=== PATIENT | female | born 1980 | race Two or more races ===

== ENCOUNTER 2016-10-27 11:28 | Outpatient (CLI) | payer MEDICAID ==
[~2016-10-27] VITALS: Ht 157.5 cm; Wt 64.8 kg
[2016-10-27 11:50] VITALS: BP 109/63; PULSE 78; RESP 18
[2016-10-27] MEDS ORDERED: PRENAT PO (11:50)
[2016-10-27 11:51] VITALS: Ht 157.5 cm; Wt 64.8 kg
[2016-10-27 13:36] LABS: BASOPHILS % 0.1 % (0.0-2.0); EOSINOPHILS # 0.1 10^3/ul (0.0-0.5); EOSINOPHILS % 0.6 % (0.0-7.0); HEMATOCRIT 34.8 % (37.0-47.0); HEMOGLOBIN 11.6 g/dl (12.0-16.0); LYMPHOCYTES # 1.5 10^3/ul (0.8-2.9); LYMPHOCYTES % 15.9 % (15.0-51.0); MEAN CORPUSCULAR HEMOGLOBIN 30.1 pg (29.0-33.0); MEAN CORPUSCULAR HGB CONC 33.3 g/dl (32.0-37.0); MEAN CORPUSCULAR VOLUME 90.2 fl (82.0-101.0); MEAN PLATELET VOLUME 12.7 fl (7.4-10.4); MONOCYTE # 0.7 10^3/ul (0.3-0.9); MONOCYTES % 7.2 % (0.0-11.0); NEUTROPHILS % 75.5 % (39.0-77.0); PLATELET COUNT 146 10^3/UL (140-415); RED BLOOD COUNT 3.86 10^6/ul (4.20-5.40); WHITE BLOOD COUNT 9.4 10^3/ul (4.8-10.8)
--- NOTE | 2016-10-27 13:36 | RADRPT ---
PROCEDURE: Biophysical profile CLINICAL INDICATION: with contractions. distress. TECHNIQUE: Color and irizarry-scale ultrasound images of an intrauterine gestation were obtained. COMPARISON: None FINDINGS: A single live intrauterine gestation is identified in cephalic position with an estimated hear t rate of 136 beats per minute. The placenta is located posteriorly and has a grade of 1. The cerv ix is obscured by head shadows. No evidence of abruption identified. KWESI is 11.3 cm. movement 2/2. tone 2/2. breathing movement 2/2. Qualitative AFV 2/2 Total biophysical profile 09/22 IMPRESSION: 09/22 biophysical profile. RPTAT: AA .Amado Keys MD, Date Time Electronically viewed and signed by .Amado Keys MD, MD on 10/27/2016 13:36 .P/
[2016-10-27 13:47] LABS: ADD UMIC YES; UR ASCORBIC ACID NEGATIVE (NEGATIVE); UR BACTERIA FEW /HPF (NONE SEEN); UR BILIRUBIN (Dip) NEGATIVE (NEGATIVE); UR BLOOD (Dip) NEGATIVE (NEGATIVE); UR CLARITY CLEAR (CLEAR); UR COLOR YELLOW (YELLOW); UR GLUCOSE (Dip) NEGATIVE (NEGATIVE); UR KETONES (Dip) NEGATIVE (NEGATIVE); UR LEUKOCYTE ESTERASE (Dip) 1+ Leu/ul (NEGATIVE); UR NITRITE (Dip) NEGATIVE (NEGATIVE); UR RBC 1 /HPF (0-5); UR SPECIFIC GRAVITY (Dip) 1.011 (1.003-1.030); UR TOTAL PROTEIN (Dip) NEGATIVE (NEGATIVE); UR UROBILINOGEN (Dip) NEGATIVE (NEGATIVE)
[2016-10-27] MEDS ORDERED: LACTATED RINGER'S 1,000 ML IV ONE (14:30)
--- NOTE | 2016-10-27 15:02 | RADRPT ---
PROCEDURE: Limited obstetric ultrasound CLINICAL INDICATION: Pain TECHNIQUE: Multiple transverse and longitudinal grayscale images of the pelvis were obtained gómez sabdominally and transvaginally.. COMPARISON: Same day FINDINGS: The cervix is closed with a length of 4.4 cm. There is a single viable intrauterine gestation. Cardiac activity is present with 125 beats per min [place]. There is a vertex presentation. The placenta is posterior fundal. There is no evidence for an abruption or placenta previa. RPTAT: AA IMPRESSION: Cervix length measures 4.4 cm. .Jed Boothe MD, Date Time Electronically viewed and signed by .Jed Boothe MD, on 10/27/2016 15:01 .S/
[2016-10-27] MEDS ORDERED: NIFEdipine 10 MG CAP PO ONE (16:00)
--- NOTE | 2016-10-27 18:30 | TRIAGE ---
OB Triage Datetime Report Generated by CPN: 10/27/2016 18:30 Datetime: 10/27/2016 18:24 Vaginal Exam Dilatation (cms): 0.0 Exam By: KHEMANI Datetime: 10/27/2016 18:00 Stage of : OB Triage Maternal Assessment Level of Consciousness: Fully Conscious Labor Evaluation Frequency: 1-5 Monitor Mode: External Duration (sec)2399: 30-90 Quality: Mild Resting Tone [place]: Relaxed Heart Rate FHR Baseline Rate: 140 Monitor Mode: External US Variability: Moderate 6-25 bpm Accelerations: 15X15 Decelerations: None Pain Assessment Pain Scale: 0 Pain Goal: 3 Membrane Status: Intact Vaginal Bleeding: None Datetime: 10/27/2016 17:32 Monitor Mode: External US Datetime: 10/27/2016 17:00 Stage of : OB Triage Maternal Assessment Level of Consciousness: Fully Conscious Labor Evaluation Frequency: 2-9 Monitor Mode: External Duration (sec)2399: 80-90 Quality: Mild Resting Tone [place]: Relaxed Heart Rate FHR Baseline Rate: 140 Monitor Mode: External US Variability: Moderate 6-25 bpm Accelerations: 15X15 Decelerations: None Pain Assessment Pain Scale: 0 Pain Goal: 3 Membrane Status: Intact Vaginal Bleeding: None Datetime: 10/27/2016 16:00 Stage of : OB Triage Maternal Assessment Level of Consciousness: Fully Conscious Labor Evaluation Frequency: 2-3 Monitor Mode: External Duration (sec)2399: 80-90 Quality: Mild Resting Tone [place]: Relaxed Heart Rate FHR Baseline Rate: 140 Monitor Mode: External US Variability: Moderate 6-25 bpm Accelerations: 15X15 Decelerations: None Pain Assessment Pain Scale: 0 Pain Goal: 3 Membrane Status: Intact Vaginal Bleeding: None Datetime: 10/27/2016 14:59 Stage of : OB Triage Maternal Assessment Level of Consciousness: Fully Conscious Labor Evaluation Frequency: 2-4 Monitor Mode: External Duration (sec)2399: 70-100 Quality: Mild Resting Tone [place]: Relaxed Heart Rate FHR Baseline Rate: 135 Monitor Mode: External US Variability: Moderate 6-25 bpm Accelerations: 15X15 Decelerations: None Pain Assessment Pain Scale: 0 Pain Goal: 3 Membrane Status: Intact Vaginal Bleeding: None Datetime: 10/27/2016 14:06 Vaginal Exam Dilatation (cms): 0.0 Exam By: MD DELSHAD Datetime: 10/27/2016 14:00 Stage of : OB Triage Maternal Assessment Level of Consciousness: Fully Conscious Labor Evaluation Frequency: 2-20 Monitor Mode: External Duration (sec)2399: 50-110 Quality: Mild Resting Tone [place]: Relaxed Heart Rate FHR Baseline Rate: 140 Monitor Mode: External US Variability: Moderate 6-25 bpm Accelerations: 15X15 Decelerations: None Pain Assessment Pain Scale: 0 Pain Goal: 3 Membrane Status: Intact Vaginal Bleeding: None Datetime: 10/27/2016 13:00 Stage of : OB Triage Maternal Assessment Level of Consciousness: Fully Conscious Labor Evaluation Frequency: 2uc/hr Monitor Mode: External Duration (sec)2399: 50-110 Quality: Mild Resting Tone [place]: Relaxed Heart Rate FHR Baseline Rate: 140 Monitor Mode: External US Variability: Moderate 6-25 bpm Accelerations: 15X15 Decelerations: None Category: Category I Pain Assessment Pain Scale: 0 Pain Goal: 3 Membrane Status: Intact Vaginal Bleeding: None Datetime: 10/27/2016 12:54 Pool: Negative Nitrazine: Negative Datetime: 10/27/2016 12:22 EGA: 31.3 Datetime: 10/27/2016 11:48 Assessment Type: Triage Maternal Assessment Level of Consciousness: Fully Conscious DTR's/Clonus: DTRs 2+; No Clonus Headache: Denies Blurred Vision: No Respiratory Effort: Unlabored; Regular Rhythm; Equal Expansion Breath Sounds, Left: Clear and Equal Breath Sounds, Right: Clear and Equal Nausea/Vomiting: Denies RUQ Epigastric Pain: Denies Lower Extremities Edema: None Degree: None Upper Extremities Edema: None Degree: None Facial Edema: None Fall Risk Assessment History of Falling: (0) No Secondary Diagnosis: (0) No Ambulatory Aid: (0) Bedrest/Nurse Assist IV Therapy: (0) No Gait: (0) Normal/Bedrest/Immobile Mental Status: (0) Oriented to Own Ability Fall Score: 0 Fall Risk Score Definition: No Risk: No action required Datetime: 10/27/2016 11:47 Time of Arrival: 10/27/2016 11:22 EGA: 31.3 Arrived By: Ambulatory Arrived From: Home Chief Complaint: PT HERE C/O POSSIBLE SROM SINCE LAST WEEK AND UC'S Movement: Present Contractions: Irregular Time Contractions Began: 10/27/2016 08:00 Rupture of Membranes: Unsure Vaginal Bleeding: None Vaginal Discharge: Denies Recent Sexual Intercouse: Denies Abdominal Trauma: Not Applicable Patient Complaints: Contractions; Cramping Time Provider Notified: 10/27/2016 12:45 Provider Notified: ALIDA Initial Plan: EFM/STER. SPEC./ROM PLUS/BPP/UA/CBC/CVL/IV HYDRATION/PROCARDIA PO Datetime: 10/27/2016 11:40 Monitor Mode: External Monitor Mode: External US
--- NOTE | 2016-10-27 18:34 | PN ---
Triage Information Date/Time Reason for visit: SROM Weeks of Gestation 31 weeks /Para Diabetes: none Hypertention: none Objective Vital Signs Date Time Temp Pulse Resp B/P Pulse Ox O2 Delivery O2 Flow Rate FiO2 10/27/16 11:50 98.9 78 18 109/63 95 Room Air Heart Rate: 130's Heart Rate Comments Category I Contractions: 6-10 Minutes Apart Exam Cervix closed. No cervical change during observation period. Results/Medications Result Diagram: 10/27/16 1305 Results 24 hrs Laboratory Tests Test 10/27/16 11:30 10/27/16 12:55 10/27/16 13:05 Urine Color YELLOW Urine Clarity CLEAR Urine pH 8.0 Urine Specific [place] 1.011 Urine Ketones NEGATIVE Urine Nitrite NEGATIVE Urine Bilirubin NEGATIVE Urine Urobilinogen NEGATIVE Urine Leukocyte Esterase 1+ H Urine Microscopic RBC 1 Urine Microscopic WBC 1 Urine Bacteria FEW A Urine Hemoglobin NEGATIVE Urine Glucose NEGATIVE Urine Total Protein NEGATIVE Membranes Rupture NEGATIVE White Blood Count 9.4 Red Blood Count 3.86 L Hemoglobin 11.6 L Hematocrit 34.8 L Mean Corpuscular Volume 90.2 Mean Corpuscular Hemoglobin 30.1 Mean Corpuscular Hemoglobin Concent 33.3 Red Cell Distribution Width 14.0 Platelet Count 146 Mean Platelet Volume 12.7 H Neutrophils % 75.5 Lymphocytes % 15.9 Monocytes % 7.2 Eosinophils % 0.6 Basophils % 0.1 Nucleated Red Blood Cells % 0.0 Neutrophils # (Manual) 7.1 Lymphocytes # 1.5 Monocytes # 0.7 Eosinophils # 0.1 Basophils # 0.0 Nucleated Red Blood Cells # 0.0 Imaging Results Cervical length and KWESI normal. Disposition: Discharge Assessment/Plan Sterile speculum exam no pooling ROM test negative No sign of SROM or labor. D/C home. EVERT RIWIN MD Oct 27, 2016 18:34
== END 2016-10-27 18:40 | disposition home or self-care (01) ==
LOC: OBT 11:28 → L-D 11:28 → OBT 18:40
PROVIDERS: ATTEND Obstetrics & Gynecology
DX: O42.913 Preterm premature rupture of membranes, unspecified as to length of time between rupture and onset of labor, third trimester (principal); Z3A.31 31 weeks gestation of pregnancy
CPT/HCPCS: 36415; 76817; 76818; 81001; 84112; 85025; 96360; 96361; J7120; Z7500; Z7610; G0463

== ENCOUNTER 2016-12-15 04:38 | Inpatient (IN) | payer MEDICAID ==
[~2016-12-15] VITALS: Ht 160 cm; Wt 68.8 kg
[~2016-12-15 04:38] MED LIST: PRENAT PO
[2016-12-15 05:10] VITALS: BP 116/76; PULSE 73; RESP 18; Ht 160 cm; Wt 68.8 kg
[2016-12-15] MEDS ORDERED: LACTATED RINGER'S 1,000 ML IV SCH (05:46)
[2016-12-15] MEDS ORDERED: LACTATED RINGER'S 1,000 ML IV PRN (05:50)
--- NOTE | 2016-12-15 05:50 | RADRPT ---
PROCEDURE: Biophysical profile. CLINICAL INDICATION: Pelvic pain. TECHNIQUE: Multiple sonographic images of the pelvis were obtained with transabdominal technique. COMPARISON: 10/27/2016. FINDINGS: There is a single living intrauterine gestation with the fetus in a vertex position. The placenta i s posterior in location, grade II. heart tones of 161 beats per minute are identified. There is low normal amniotic fluid volume with an KWESI of 8.9 cm. breathing movements = 2 Gross body movements = 2 tone = 2 Qualitative AFV = 2 IMPRESSION: Biophysical profile 8 out of 8. .Jeferson Carreno MD, Date Time Electronically viewed and signed by .Jeferson Carreno MD, on 12/15/2016 05:50 .T/
[2016-12-15] MEDS ORDERED: HYDROCODONE/APAP (5/325) TAB PO PRN ×2 (06:00→08:00)
[2016-12-15] MEDS ORDERED: OXYTOCIN 30 UNITS/LR 500 ML IV PRN ×2 (06:00→08:00)
[2016-12-15] MEDS ORDERED: MISOPROSTOL 200 MCG TAB PR PRN ×2 (06:00→08:00)
[2016-12-15] MEDS ORDERED: BUTORPHANOL 2 MG INJ IV PRN ×2 (06:00)
[2016-12-15] MEDS ORDERED: IBUPROFEN 600 MG TAB PO PRN (06:00)
[2016-12-15] MEDS ORDERED: LIDOCAINE 1% (MPF) 30 ML INJ INJ PRN (06:00)
[2016-12-15] MEDS ORDERED: AMPICILLIN 2 GM/NS (PMX) 100 ML IV ONE (06:00)
[2016-12-15] MEDS ORDERED: OXYTOCIN 30 UNITS/LR 500 ML IV SCH ×2 (06:00)
[2016-12-15] MEDS ORDERED: CARBOPROST 250 MCG INJ IM PRN ×2 (06:00→08:00)
[2016-12-15] MEDS ORDERED: METHYLERGONOVINE 0.2 MG INJ IM PRN ×2 (06:00→08:00)
--- NOTE | 2016-12-15 06:41 | TRIAGE ---
OB Triage Datetime Report Generated by CPN: 12/15/2016 06:41 Datetime: 12/15/2016 06:32 Stage of : Labor Vaginal Exam Dilatation (cms): 4.5 Effacement (%): 70 Station: -2 Exam By: MG Datetime: 12/15/2016 06:00 Labor Evaluation Frequency: 2-4 Monitor Mode: External Duration (sec)2399: 40-90 Quality: Mild Pattern: Normal: <= 5 Contractions in 10 Minutes Resting Tone [place]: Relaxed Heart Rate FHR Baseline Rate: 135 Monitor Mode: External US FHR Baseline Changes: No Baseline Change Variability: Moderate 6-25 bpm Accelerations: 15X15 Decelerations: None Category: Category I Datetime: 12/15/2016 04:57 Stage of : OB Triage Time of Arrival: 12/15/2016 04:30 EGA: 38.3 Arrived By: Wheelchair Arrived From: Home Time Provider Notified: 12/15/2016 05:07 Provider Notified: DR KESSLER Initial Plan: CALL KO HENLEY Maternal Assessment Level of Consciousness: Fully Conscious DTR's/Clonus: DTRs 2+; No Clonus Headache: Denies Blurred Vision: No Respiratory Effort: Unlabored; Regular Rhythm; Equal Expansion Breath Sounds, Left: Clear and Equal Breath Sounds, Right: Clear and Equal Nausea/Vomiting: Denies RUQ Epigastric Pain: Denies Lower Extremities Edema: None Degree: None Upper Extremities Edema: None Degree: None Facial Edema: None Temperature Route: Axillary Fall Risk Assessment History of Falling: (0) No Secondary Diagnosis: (0) No Ambulatory Aid: (0) Bedrest/Nurse Assist IV Therapy: (0) No Gait: (0) Normal/Bedrest/Immobile Mental Status: (0) Oriented to Own Ability Fall Score: 0 Fall Risk Score Definition: No Risk: No action required Monitor Mode: External Monitor Mode: External US Pain Assessment Pain Scale: 5 Pain Presence: Intermittent Pain Type: Contraction Pain Location: Abdomen; Back Datetime: 12/15/2016 04:48 Vaginal Exam Dilatation (cms): 2.0 Effacement (%): 40 Station: -3 Exam By: Shruthi LOONEY RN Vaginal Bleeding: None Cervix, Consistency: Firm Cervix, Position: Posterior Presentation 'A': Cephalic Datetime: 10/27/2016 12:22 Time of Arrival: 12/15/2016 04:30 EGA: 38.3 Arrived By: Wheelchair Arrived From: Home Chief Complaint: CONTRACTIONS @ 2200 / SROM @0330 Movement: Present Time Contractions Began: 12/14/2016 22:00 Rupture of Membranes: Unsure Initial Plan: CALL MD, EFM Datetime: 10/27/2016 11:48 Fall Score: 0 Fall Risk Score Definition: No Risk: No action required Datetime: 10/27/2016 11:47 EGA: 31.3
--- NOTE | 2016-12-15 07:36 | LDN ---
Date/Time of Note Date/Time of Note DATE: 12/15/16 TIME: 07:34 Delivery Summary of a viable baby boy weighing 2845 grams or 6# 4 oz, 18" long, and with Apgars of 9/9. Weeks of Gestation 38w 3d Placenta Delivered: Spontaneously Meconium: none Episiotomy: No Perineal laceration: 0 Anesthesia type: None Estimated blood loss: 150 Sponge & Needle done & correct: Yes All needle counts correct: Yes Any foreign bodies felt in the: No (vagina) Problems: Infant Delivery Information Sex Infant Sex: male Apgars 1 Minute: 9 5 Minute: 9 Suctioning Nose & mouth suctioned at stan: Yes Delee suction performed: No Umbilical Cord Umbilical cord with: 3 Vessels Cord presentations: nuchal cord Nuchal cord present X: 1 Cord Blood was obtained: Yes Mother & Baby Disposition Disposition Mom & Baby to Maternity; Good: Yes Baby to NICU: No KAMARI KESSLER MD Dec 15, 2016 07:36
--- NOTE | 2016-12-15 07:41 | HP ---
Date/Time of Note Date/Time of Note DATE: 12/15/16 TIME: 07:36 OB - History Hx of Present Free Text/Dictation 36 y.o. with an IUP at 38w 3d came in with ruptured membranes and in active labor. Chief Complaint: Labor Estimated Due Date: Dec 26, 2016 : 4 Para: 3 Care: Good Care Ultrasounds: Normal mid trimester US Obstetrical Complications: None Medical Complications: None Past Family/Social History * Past Medical, Surgical, Family and Obstetric Histories reviewed from chart. Blood Type: O+ Rubella: immune RPR/VDRL: Negative GBS Status: Unknown HBsAG: Negative OB Admission Exam Vital Signs Vital Signs Vital Signs Date Time Temp Pulse Resp B/P Pulse Ox O2 Delivery O2 Flow Rate FiO2 12/15/16 05:10 98.3 73 18 116/76 Room Air Physical Exam HEENT: WNL Heart: Rhythm Normal Lungs: Clear Abdomen: WNL Extremities: Normal Reflexes: Normal Cervical Dilatation: 4cm Effacement: 50% Station: -2 Membranes: Ruptured Amniotic Fluid: Clear Heart Rate: 140's Accelerations: Accelerations Present Decelerations: No Decelerations Varibility: Moderate Contractions on Admission: < 5 Minutes Apart Last 72 hours Lab Results CBC & BMP 12/15/16 06:12 OB Assessment/Plan Reason for admission: active labor Plan: Expectant Management Other plan: Antibiotic prophylaxis KAMARI KESSLER MD Dec 15, 2016 07:41
[2016-12-15] MEDS ORDERED: LANOLIN 7 GM TUBE TOP PRN (08:00)
[2016-12-15] MEDS: OXYTOCIN 30 UNITS/LR 500 ML IV SCH ×2 (08:05→11:41)
[2016-12-15] MEDS ORDERED: IBUPROFEN 600 MG TAB PO ONE (09:00)
[2016-12-15 09:20] VITALS: BP 124/78; PULSE 64; RESP 18
[2016-12-15] MEDS: LACTATED RINGER'S 1,000 ML IV* SCH ×2 (09:20→15:41)
[2016-12-15] MEDS ORDERED: AMPICILLIN 1 GM/NS (PMX) 50 ML IV SCH (10:00)
[2016-12-15] MEDS ORDERED: INFLUENZA VIRUS VACCINE 0.5 ML SYG IM* ONE (12:00)
[2016-12-15] MEDS: IBUPROFEN 600 MG TAB PO SCH ×2 (12:03→17:27)
[2016-12-15 12:30] VITALS: BP 122/76; PULSE 66; RESP 18
[2016-12-15 16:25] VITALS: BP 126/74; PULSE 66; RESP 18
[2016-12-15 20:00] VITALS: BP 101/58; PULSE 76; RESP 18
[2016-12-16] MEDS: IBUPROFEN 600 MG TAB PO SCH ×5 (00:18→23:57)
[2016-12-16 04:01] VITALS: BP 103/65; PULSE 66; RESP 18
[2016-12-16 07:30] VITALS: BP 112/65; PULSE 68; RESP 16
[2016-12-16] MEDS ORDERED: SENNA/DOCUSATE NA (8.6MG/50MG) TAB PO SCH ×2 (08:05→21:00)
[2016-12-16] MEDS ORDERED: INFLUENZA VIRUS VACCINE 0.5 ML SYG IM* ONE (10:00)
--- NOTE | 2016-12-16 13:07 | QN ---
Documentation Comment day 1 Afebrile Vital signs are stable Abdomen soft, uterus firm, lochia normal, extremity normal, Plan of a.m. discharge discussed with the patient MARTY PARDO MD Dec 16, 2016 13:07
[2016-12-16 16:00] VITALS: BP 106/62; PULSE 81; RESP 16
[2016-12-16 20:30] VITALS: BP 111/70; PULSE 76; RESP 19
[2016-12-16] MEDS: SENNA/DOCUSATE NA (8.6MG/50MG) TAB PO SCH (21:00)
[2016-12-17 04:00] VITALS: BP 105/68; PULSE 62; RESP 20
[2016-12-17] MEDS: IBUPROFEN 600 MG TAB PO SCH ×2 (05:41→12:03)
[2016-12-17 08:00] VITALS: BP 102/71; PULSE 18; RESP 18
[2016-12-17] MEDS ORDERED: DIPHTH/TET/ACEL PERTUSS (ADULT) 0.5 ML VIAL IM* ONE (09:00)
[2016-12-17] MEDS: SENNA/DOCUSATE NA (8.6MG/50MG) TAB PO SCH (09:34)
--- NOTE | 2016-12-17 10:24 | PD.PPDC ---
PHOTOENGRAVER Discharge Instruction Condition Patient Condition: Good Diet Diet: Resume Regular Diet Activity/Restrictions Activity: Normal Activity May Shower Restrictions: No Exercising No Lifting No Driving No Sexual Activity Nothing in the Vagina No [place] No Tampons, douche Follow-up Follow-up with Physician: 2, Week/Weeks Provider Information: instructions given recommended to make appointment to be seen at the clinic in 2 weeks Return to clinic for INTERSTATE PLANNER Instructions: Fever greater than 101 Chills Worsening abdominal pain Excessive Vaginal Bleeding More than 2 pads per hour Unable to tolerate diet OB Instructions: Breast Tenderness Depression Blurried Vision Headache Surgical Instructions: Incisional Drainage Incisional Redness MARTY PARDO MD Dec 17, 2016 10:24
--- NOTE | 2016-12-17 10:24 | PD.PPDC ---
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
--- NOTE | 2016-12-17 10:24 | PD.PPDC ---
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
--- NOTE | 2016-12-17 10:26 | DS ---
Date/Time of Note Date/Time of Note DATE: 12/17/16 TIME: 10:25 Discharge Summary Admission/Discharge Info Admit Date/Time Dec 15, 2016 at 05:51 Discharge Date/Time December 17, 2016 at 11 AM Discharge Diagnosis Post normal vaginal delivery day 2 Patient Condition: Good Procedures Normal vaginal delivery Hx of Present Illness Term Hospital Course Satisfactory uneventful Home Meds Reported Medications Multivit/Min/Fol Ac/Iron/Pren* ( S*) 1 Tab Tab, 1 TAB PO DAILY, TAB 10/27/16 Follow-up Plan instruction given recommended patient to make appointment to be seen at the clinic in 2 weeks Primary Care Provider Not On Staff Doctor Time spent on discharge: < 30 minutes Pending Labs Laboratory Tests Test 12/16/16 11:10 White Blood Count 8.610^3/ul (4.8-10.8) Red Blood Count 4.2810^6/ul (4.20-5.40) Hemoglobin 12.4g/dl (12.0-16.0) Hematocrit 37.9% (37.0-47.0) Mean Corpuscular Volume 88.6fl (82.0-101.0) Mean Corpuscular Hemoglobin 29.0pg (29.0-33.0) Mean Corpuscular Hemoglobin Concent 32.7g/dl (32.0-37.0) Red Cell Distribution Width 14.1% (11.5-14.5) Platelet Count 61005^3/UL (140-415) Mean Platelet Volume 13.2fl (7.4-10.4) Neutrophils % 68.5% (39.0-77.0) Lymphocytes % 22.3% (15.0-51.0) Monocytes % 7.5% (0.0-11.0) Eosinophils % 0.8% (0.0-7.0) Basophils % 0.4% (0.0-2.0) Nucleated Red Blood Cells % 0.0/100WBC (0.0-0.0) Neutrophils # 5.910^3/ul (1.6-7.5) Lymphocytes # 1.910^3/ul (0.8-2.9) Monocytes # 0.610^3/ul (0.3-0.9) Eosinophils # 0.110^3/ul (0.0-0.5) Basophils # 0.010^3/ul (0.0-0.1) Nucleated Red Blood Cells # 0.010^3/ul (0.0-0.0) MARTY PARDO MD Dec 17, 2016 10:26
== END 2016-12-17 16:30 | disposition home or self-care (01) | DRG 775 ==
LOC: OBT 04:38 → L-D 04:38 → OBT 05:51 → PP1 09:25
PROVIDERS: ADMIT Obstetrics & Gynecology; ATTEND Obstetrics & Gynecology
PROC: 10E0XZZ Delivery of Products of Conception, External Approach (ICD-10-PCS; principal; 2016-12-15)
DX: O80 Encounter for full-term uncomplicated delivery (principal); Z37.0 Single live birth; Z3A.38 38 weeks gestation of pregnancy
CPT/HCPCS: 36415; 76818; 80053; 81001; 84112; 85025; 85610; 85730; 86592; 86900; 86901; 87086; 90686; 90715; G0463; J0290; J2590; J7120

== ENCOUNTER 2018-02-03 15:43 | Emergency (ER) | END 2018-02-03 19:33 | disposition home or self-care (01) ==

== ENCOUNTER 2018-07-21 17:45 | Emergency (ER) | payer MEDICAID ==
[~2018-07-21] VITALS: Wt 65.0 kg
--- NOTE | 2018-07-21 19:55 | ERD ---
ER Documentation Chief Complaint Chief Complaint DYSURIA SENT BY PMD FOR FREQUENT UTI'S, 16 WEEKS HPI 38-year-old G5, P4 female in her 16th week of presents with complaint of dysuria. States that she says is a UTI 2 weeks ago and placed on a 7-day course of antibiotics which she completed a week ago. Since then his dysuria has returned. Primary care provider referred her here for urine culture. She is unsure which antibiotic she was taking. Denies any flank pain, fevers, hematuria, vomiting, back pain. ROS All systems reviewed and are negative except as per history of present illness. Medications Home Meds Active Scripts Cephalexin* (Keflex*) 500 Mg Capsule, 500 MG PO BID for 7 Days, CAP Prov:TORRESAYLIN 07/21/18 Reported Medications Multivit/Min/Fol Ac/Iron/Pren* ( S*) 1 Tab Tab, 1 TAB PO DAILY, TAB 10/27/16 Allergies Allergies: Coded Allergies: No Known Allergy (Verified , 02/03/18) PMhx/Soc Medical and Surgical Hx: pt denies Medical Hx, pt denies Surgical Hx Hx Alcohol Use: No Hx Substance Use: No Hx Tobacco Use: No Smoking Status: Never smoker FmHx Family History: No diabetes, No coronary disease, No other Physical Exam Vitals Vital Signs Date Temp Pulse Resp B/P (MAP) Pulse Ox O2 O2 Flow FiO2 Time Delivery Rate 07/21/18 98.1 67 18 139/72 98 18:18 (94) Physical Exam Const: No acute distress Head: Atraumatic Eyes: Normal Conjunctiva ENT: Normal External Ears, Nose and Mouth. Neck: Full range of motion. No meningismus. Resp: Clear to auscultation bilaterally Cardio: Regular rate and rhythm, no murmurs Abd: Soft, non tender, non distended. Normal bowel sounds Skin: No petechiae or rashes Back: No midline or flank tenderness Ext: No cyanosis, or edema Neur: Awake and alert Psych: Normal Mood and Affect Pelvic: No lesions or erythema noted in the vaginal area. Results 24 hrs Laboratory Tests Test 07/21/18 19:43 Urine Color [place] Urine Clarity CLEAR Urine pH 6.0 Urine Specific [place] 1.038 Urine Ketones [place]ACE mg/dL Urine Nitrite NEGATIVE mg/dL Urine Bilirubin NEGATIVE mg/dL Urine Urobilinogen 1+ mg/dL Urine Leukocyte Esterase NEGATIVE [place]/ul Urine Hemoglobin NEGATIVE mg/dL Urine Glucose NEGATIVE mg/dL Urine Total Protein NEGATIVE mg/dl Current Medications Medications Dose Sig/Thomas Start Time Status Last (Trade) Ordered Route PRN Stop Time Admin Dose Reason Admin Ceftriaxone 1 gm ONCE ONCE 07/21/18 Sodium IM 21:00 07/21/18 (Rocephin) 21:01 Lidocaine 5 ml ONCE ONCE 07/21/18 (Xylocaine INJ 21:00 07/21/18 1% (Mpf)) 21:01 Procedures/MDM MDM: UA was negative but given patient's complaint of dysuria, referral from primary care, and status patient was treated for possible UTI. In addition patient was tested for chlamydia and gonorrhea. This time I have low suspicion for pyelonephritis, acute space infection, or any other emergent condition. Patient discharged with strict ER precautions. Patient advised to follow up with PMD. All questions answered at discharge. Departure Diagnosis: Primary Impression: Dysuria Condition: Stable AYLIN MACDONALD Jul 21, 2018 19:55
[2018-07-21] MEDS ORDERED: CEPH-443 PO (20:49)
[2018-07-21] MEDS ORDERED: CEFTRIAXONE 1 GM INJ IM ONE (21:00)
[2018-07-21] MEDS ORDERED: LIDOCAINE 1% (MPF) 5 ML VIAL INJ ONE (21:00)
[2018-07-21 21:28] VITALS: BP 114/77; PULSE 63; RESP 18
== END 2018-07-21 21:29 | disposition home or self-care (01) ==
LOC: FTE 17:45
DX: R30.0 Dysuria (principal)
CPT/HCPCS: 81003; 87086; 87591; 96372; J0696; Z7502; Z7610